=== PATIENT | male | born 1960 | race Caucasian/White ===

== ENCOUNTER 2016-08-27 06:29 | Day surgery (SDC) | payer BC ==
[~2016-08-27 06:29] MED LIST: Dextrose 5%-0.45% NaCl 1,000 ML IV SCH; Midazolam 1 MG/ML 2 ML SDV ONE; Sodium Chloride 0.9% 10 ML Syringe FLUSH PRN; fentaNYL 100 MCG/2 ML SDV ONE
[2016-08-27] MEDS ORDERED: fentaNYL 100 MCG/2 ML SDV IV ONE ×5 (07:57→14:40)
[2016-08-27] MEDS ORDERED: Midazolam 1 MG/ML 2 ML SDV IV ONE ×7 (07:58→14:40)
--- NOTE | 2016-08-27 09:17 | OR ---
DATE: 08/27/2016 PROCEDURE: Total colonoscopy. INSTRUMENT USED: CF-H180AL Olympus video colonoscope. PREMEDICATIONS: Fentanyl 150 mcg intravenous, Versed 4 mg intravenous. Nasal O2 cannula. The procedure was done under pulse oximetry, BP recording, and parachute line tier. INDICATION: Screening colonoscopic examination is done for detection of any polypoid lesions and removal, endoscopic hemostasis therapy if needed. DESCRIPTION OF PROCEDURE: Initial rectal exam was unremarkable. Rigid anoscopy was normal. The colonoscope was passed with ease up to the ileocecal area, photographs were taken of the normal-appearing cecum, identified by double- bulged ileocecal folds. No bleeding was noted from any of the visualized areas at the commencement of the examination. No stricture. No vascular ectasia. No large isolated ulcerations seen. No evidence of diffuse inflammatory bowel disease in the form of friability, contact bleeding, or ulcerations. No polyp or tumor mass identified. Probing the proximal sides of folds and flexures, using adequate distention and clearing up the stool material, withdrawal of the scope was made, cecum to rectum time over 6 minutes. No bleeding was noted from any of the visualized areas at the completion of examination. IMPRESSION: Normal study. The patient tolerated the procedure well. [facility] /[id number]
[2016-08-27 11:07] VITALS: BP 158/91
== END 2016-08-27 09:38 | disposition home or self-care (01) ==
LOC: DL.ENDO 06:29
PROVIDERS: ATTEND Internal Medicine Gastroenterology
DX: Z12.11 Encounter for screening for malignant neoplasm of colon (principal); I10 Essential (primary) hypertension; E66.9 Obesity, unspecified; Z72.0 Tobacco use
CPT/HCPCS: 45378; J2250; J3010; J7042

== ENCOUNTER 2019-03-06 13:08 | Emergency (ER) | payer BC, SELFPAY ==
[2019-03-06 13:20] VITALS: BP 148/77; PULSE 87
[2019-03-06] MEDS ORDERED: Sodium Chloride 0.9% 10 ML Syringe FLUSH PRN (13:23)
--- NOTE | 2019-03-06 13:27 | EDM.PDOC ---
ED HPI GENERAL MEDICAL PROBLEM - General Chief Complaint: Chest Pain Stated Complaint: CHEST FEELS HEAVY/LIGHTHEADED Time Seen by Provider: 03/06/19 13:26 Source of Information: Reports: Patient, RN, RN Notes Reviewed History Limitations: Reports: No Limitations - History of Present Illness INITIAL COMMENTS - FREE TEXT/NARRATIVE: Pt presents to ER with c/o lightheadedness that began at 1130HRS today. Pt states he hasn't felt well in general for about 3 or 4 days with "flu-like" symptoms. Pt admits to a heaviness in his chest for the past 3 days. Denies cough, shortness of breath, edema, or palpitations. Denies any Hx of CAD/UT. Onset: Gradual Duration: Constant, Resolved Prior to Arrival Location: Reports: Chest, Generalized Quality: Reports: Ache Severity: Moderate Improves with: Reports: None Worsens with: Reports: None Associated Symptoms: Reports: No Other Symptoms - Related Data Allergies Allergy/AdvReac Type Severity Reaction Status Date / Time bee sting Allergy ANAPHYLAXIS Uncoded 03/06/19 13:13 Home Meds: Home Meds Chlorthalidone 1 tab PO DAILY 08/26/16 [History] Levothyroxine Sodium 1 tab PO DAILY 08/26/16 [History] amLODIPine Besylate [Amlodipine Besylate] 1 tab PO DAILY 08/26/16 [History] cloNIDine HCL [Clonidine HCl] 1 tab PO DAILY 08/26/16 [History] Potassium Chloride [Klor-Con 10] 10 meq PO DAILY 03/06/19 [History] Past Medical History HEENT History: Reports: Impaired Vision, Other (See Below) Other HEENT History: WEARS CORRECTIVE LENS Cardiovascular History: Reports: Hypertension Respiratory History: Reports: None Gastrointestinal History: Reports: None Genitourinary History: Reports: Other (See Below) Other Genitourinary History: MICROSCOPIC HEMATURIA Musculoskeletal History: Reports: None Neurological History: Reports: None Psychiatric History: Reports: None Endocrine/Metabolic History: Reports: Hypothyroidism, Obesity/BMI 30+ Hematologic History: Reports: None Immunologic History: Reports: None Oncologic (Cancer) History: Reports: None Dermatologic History: Reports: Other (See Below) Other Dermatologic History: sun allergy...breaks out in the sun. on arms - Infectious Disease History Infectious Disease History: Reports: Chicken Pox, Measles, Mumps - Past Surgical History Male Surgical History: Reports: Other (See Below) Social & Family History - Family History Family Medical History: Noncontributory - Tobacco Use Smoking Status *Q: Heavy Tobacco Smoker Years of Tobacco use: 39 Packs/Tins Daily: 1 - Caffeine Use Caffeine Use: Reports: Coffee - Alcohol Use Days Per Week of Alcohol Use: 2 Number of Drinks Per Day: 5 Total Drinks Per Week: 10 - Recreational Drug Use Recreational Drug Use: No - Living Situation & Occupation Occupation: Employed ED ROS GENERAL - Review of Systems Review Of Systems: Comprehensive ROS is negative, except as noted in HPI. ED EXAM, GENERAL - Physical Exam Exam: See Below Exam Limited By: No Limitations General Appearance: Alert, WD/WN, No Apparent Distress Eye Exam: Bilateral Eye: Normal Inspection Nose: Normal Inspection, Normal Mucosa, No Blood Throat/Mouth: Normal Inspection, Normal Lips, Normal Teeth, Normal Gums, Normal Oropharynx, Normal Voice, No Airway Compromise Head: Atraumatic, Normocephalic Neck: Normal Inspection, Supple, Non-Tender, Full Range of Motion Respiratory/Chest: No Respiratory Distress, Lungs Clear, Normal Breath Sounds, No Accessory Muscle Use, Chest Non-Tender Cardiovascular: Normal Peripheral Pulses, Regular Rate, Rhythm, No Edema, No Gallop, No JVD, No Murmur, No Rub GI/Abdominal: Normal Bowel Sounds, Soft, Non-Tender, No Organomegaly, No Distention, No Abnormal Bruit, No Mass Back Exam: Normal Inspection Extremities: Normal Inspection Neurological: Alert, Oriented, Normal Cognition, No Motor/Sensory Deficits Psychiatric: Normal Mood Skin Exam: Warm, Dry, Intact, Normal Color, No Rash EKG INTERPRETATION EKG Date: 03/06/19 Time: 13:17 Rhythm: Other (SR) Rate (Beats/Min): 89 [place]: Normal P-Wave: Present QRS: Wide (borderline IVCD) ST-T: Normal QT: Normal Comparison: NA - No Prior EKG Course - Vital Signs Last Recorded V/S: Last Vital Signs Temp 99.2 F 03/06/19 13:17 Pulse 87 03/06/19 13:17 Resp 18 03/06/19 13:17 BP 148/77 H 03/06/19 13:17 Pulse Ox 98 03/06/19 13:17 - Orders/Labs/Meds Orders: Active Orders 24 hr Category Date Time Status EKG 12 Lead [EKG Documentation Completion] [] STAT Care 03/06/19 13:23 Active Peripheral IV Care [RC] . DIRECTED Care 03/06/19 13:24 Active CULTURE STREP A CONFIRMATION [] Stat Lab 03/06/19 13:25 Results STREP SCRN A RAPID W CULT CONF [] Stat Lab 03/06/19 13:25 Results Sodium Chloride 0.9% [Saline Flush] Med 03/06/19 13:23 Active 10 ml FLUSH ASDIRECTED PRN Peripheral IV Insertion Adult [OM.PC] Stat Oth 03/06/19 13:23 Ordered Medication Orders Sodium Chloride (Saline Flush) 10 ml FLUSH ASDIRECTED PRN PRN Reason: Keep Vein Open Last Admin: 03/06/19 13:37 Dose: 10 ml Labs: Laboratory Tests 03/06/19 03/06/19 Range/Units 13:18 13:18 WBC 9.3 (5.0-10.0) 10^3/uL RBC 5.69 (4.6-6.2) 10^6/uL Hgb 17.8 (14.0-18.0) g/dL Hct 49.6 (40.0-54.0) % MCV 87.2 (80-100) fL MCH 31.3 (27.0-34.0) pg MCHC 35.9 H (33.0-35.0) g/dL Plt Count 260 (150-450) 10^3/uL Neut % (Auto) 54.5 (42.2-75.2) % Lymph % (Auto) 31.8 (20.5-50.1) % [place] % (Auto) 9.4 H (2-8) % Eos % (Auto) 3.8 H (1.0-3.0) % Baso % (Auto) 0.5 (0.0-1.0) % Sodium 135 (135-145) mmol/L Potassium 3.8 (3.6-5.0) mmol/L Chloride 98 L (101-111) mmol/L Carbon Dioxide 26.0 (21.0-31.0) mmol/L Anion Gap 14.8 BUN 18 (7-18) mg/dL Creatinine 0.8 (0.6-1.3) mg/dL Est Cr Clr Drug Dosing 101.88 mL/min Estimated GFR (MDRD) > 60 BUN/Creatinine Ratio 22.50 Glucose 120 H (74-105) mg/dL Calcium 9.6 (8.4-10.2) mg/dl Total Bilirubin 1.2 H (0.2-1.0) mg/dL AST 36 (10-42) IU/L ALT 33 (10-60) IU/L Alkaline Phosphatase 70 (42-121) IU/L Troponin I < 0.02 (0.00-0.02) ng/ml Total Protein 8.1 (6.7-8.2) g/dl Albumin 4.7 (3.2-5.5) g/dl Globulin 3.4 Albumin/Globulin Ratio 1.38 Lipase 41 (22-51) U/L Meds: Medications Generic Name Dose Route Start Last Admin Trade Name Freq PRN Reason Stop Dose Admin Sodium Chloride 10 ml 03/06/19 13:23 03/06/19 13:37 Saline Flush FLUSH 10 ml ASDIRECTED PRN Administration Keep Vein Open - Radiology Interpretation Free Text/Narrative:: Chest X-ray: no acute process, see Rad. report. Departure - Departure Time of Disposition: 14:59 Disposition: Home, Self-Care 01 Condition: Good Clinical Impression: Atypical chest pain, Acute viral syndrome Instructions: Nonspecific Chest Pain, Viral Illness, Adult Forms: ED Department Discharge Additional Instructions: Rest, drink plenty of water. Follow up in clinic with your primary doctor this week to consider a cardiac stress test. Return to the ER if you develop chest pain. Sepsis Event Note - Evaluation Sepsis Screening Result: No Definite Risk - Focused Exam Vital Signs: Vital Signs Temp Pulse Resp BP Pulse Ox 03/06/19 13:17 99.2 F 87 18 148/77 H 98 Date Exam was Performed: 03/06/19 Time Exam was Performed: 15:20 - My Orders Last 24 Hours: My Active Orders 03/06/19 13:23 EKG 12 Lead [EKG Documentation Completion] [RC] STAT Sodium Chloride 0.9% [Saline Flush] 10 ml FLUSH ASDIRECTED PRN Peripheral IV Insertion Adult [OM.PC] Stat 03/06/19 13:24 Peripheral IV Care [RC] . DIRECTED 03/06/19 13:25 CULTURE STREP A CONFIRMATION [] Stat STREP SCRN A RAPID W CULT CONF [RM] Stat - Assessment/Plan Last 24 Hours: My Active Orders 03/06/19 13:23 EKG 12 Lead [EKG Documentation Completion] [RC] STAT Sodium Chloride 0.9% [Saline Flush] 10 ml FLUSH ASDIRECTED PRN Peripheral IV Insertion Adult [OM.PC] Stat 03/06/19 13:24 Peripheral IV Care [RC] . DIRECTED 03/06/19 13:25 CULTURE STREP A CONFIRMATION [RM] Stat STREP SCRN A RAPID W CULT CONF [RM] Stat
[2019-03-06 13:45] LABS: ANION GAP 14.8; CHLORIDE,CL 98 mmol/L (101-111); SODIUM,NA 135 mmol/L (135-145)
--- NOTE | 2019-03-06 14:04 | CR ---
EXAMINATION: Chest 1V Frontal SEX: Male AGE: 58 years CLINICAL HISTORY: 58-year-old male complaining of CHEST PAIN. INTERPRETATION: External outpatient dietitian leads. 1. Normal cardiac silhouette. 2. No pulmonary vascular congestion, cephalization of vascular flow, alveolar edema or dependent pleural effusion. 3. No lung mass, hilar lymphadenopathy or focal lobar pneumonia. 4. No pneumothorax or pneumomediastinum. CONCLUSION: No sign of heart failure, lobar pneumonia or other abnormality.
== END 2019-03-06 15:10 | disposition home or self-care (01) ==
LOC: DL.ED 13:08
DX: R07.89 Other chest pain (principal); B34.9 Viral infection, unspecified; I10 Essential (primary) hypertension; E03.9 Hypothyroidism, unspecified; E66.9 Obesity, unspecified; F17.210 Nicotine dependence, cigarettes, uncomplicated; Z68.30 Body mass index [BMI] 30.0-30.9, adult; Z79.899 Other long term (current) drug therapy; Z91.09 Other allergy status, other than to drugs and biological substances
CPT/HCPCS: 36415; 71045; 80053; 83690; 84484; 85025; 87081; 87430; 87804; 93005; 99285-25

== ENCOUNTER 2024-05-26 20:46 | Emergency (ER) | payer SELFPAY ==
[2024-05-26] MEDS ORDERED: Sodium Chloride 0.9% 10 ML Syringe FLUSH PRN (21:23)
[2024-05-26] MEDS: Aspirin 81 MG Tab.Chew PO ONE (21:31)
[2024-05-26 21:34] LABS: BASOPHILS PERCENT AUTO 0.4 % (0.0-1.0); EOSINOPHILS PERCENT AUTO 4.6 % (1.0-3.0); HEMATOCRIT 50.8 % (40.0-54.0); HEMOGLOBIN 17.3 g/dL (14.0-18.0); LYMPHOCYTES PERCENT AUTO 31.6 % (20.5-50.1); MEAN CORPUSCULAR HEMOGLOBIN 30.5 pg (27.0-34.0); MEAN CORPUSCULAR HGB CONC 34.1 g/dL (33.0-35.0); MEAN CORPUSCULAR VOLUME 89.6 fL (80-100); MONOCYTES PERCENT AUTO 11.1 % (2-8); NEUTROPHILS PERCENT AUTO 52.3 % (42.2-75.2); PLATELET COUNT,PLT 267 10^3/uL (150-450); RED BLOOD CELL COUNT 5.67 10^6/uL (4.6-6.2); WHITE BLOOD CELL COUNT,WBC 13.5 10^3/uL (5.0-10.0)
[2024-05-26 21:41] LABS: APPEARANCE,URINE CLEAR (CLEAR); BILIRUBIN,URINE NEGATIVE (NEGATIVE); COLOR,URINE YELLOW (YELLOW); GLUCOSE,URINE NEGATIVE (NEGATIVE); KETONES,URINE NEGATIVE (NEGATIVE); LEUKOCYTE ESTERASE,URINE NEGATIVE (NEGATIVE); NITRITE,URINE NEGATIVE (NEGATIVE); OCCULT BLOOD,URINE TRACE-LYSED (NEGATIVE); PH,URINE 5.5 (5.0-9.0); PROTEIN,URINE NEGATIVE (NEGATIVE); UROBILINOGEN,URINE 0.2 mg/dL (0.2-1.0)
[2024-05-26 21:46] LABS: INR 0.9 (0.9-1.2); PROTHROMBIN TIME 9.9 SEC (9.0-12.0); PTT,PARTIAL THROMBOPLSTIN TIME 28.3 SEC (22.0-34.0)
[2024-05-26 21:53] LABS: BACTERIA,URINE RARE /HPF (0-FEW/HPF); EPITHELIAL CELLS,URINE NOT SEEN /HPF (NOT SEEN); MUCUS,URINE FEW /LPF (NOT SEEN); RBC,URINE 0-5 /HPF (0-5); WBC,URINE NOT SEEN /HPF (0-5/HPF)
[2024-05-26 21:56] LABS: ALBUMIN 4.4 g/dL (3.4-5.0); ANION GAP 14.5 mEq/L (7-13); BILIRUBIN TOTAL 0.4 mg/dL (0.2-1.0); CALCIUM 9.6 mg/dL (8.5-10.1); CREATININE 0.86 mg/dL (0.70-1.30); EST CRCL DRUG DOSING (CG) 87.92 mL/min; POTASSIUM,K 3.5 mmol/L (3.5-5.1); PROTEIN TOTAL,TP 8.7 g/dL (6.4-8.2)
[2024-05-26 21:57] LABS: MAGNESIUM 2.2 mg/dL (1.8-2.4)
[2024-05-26 21:58] LABS: TSH ULTRASENSITIVE 16.95 uIU/mL (0.36-3.74)
[2024-05-26] MEDS ORDERED: Heparin Sodium 5,000 Units/ML Vial IVPUSH ONE (22:30)
[2024-05-26] MEDS: Heparin Sodium/0.45% NaCl 25,000 UNITS/500 ML BAG IV SCH (23:04)
[2024-05-26] MEDS: Heparin Sodium 5,000 Units/ML Vial IVPUSH ONE (23:07)
[2024-05-26 23:28] VITALS: BP 143/73; PULSE 70
[2024-05-26] MEDS: Nitroglycerin 2% Oint 1 GM UD Packet TOP ONE (23:40)
== END 2024-05-27 00:37 ==
LOC: DL.ED 20:46
DX: I21.4 Non-ST elevation (NSTEMI) myocardial infarction (principal); I10 Essential (primary) hypertension; I44.7 Left bundle-branch block, unspecified; E66.9 Obesity, unspecified; Z68.44 Body mass index [BMI] 60.0-69.9, adult; E03.9 Hypothyroidism, unspecified; F17.210 Nicotine dependence, cigarettes, uncomplicated; Z91.030 Bee allergy status; Z79.890 Hormone replacement therapy; Z79.899 Other long term (current) drug therapy
CPT/HCPCS: 36415; 71045; 80053; 80061; 80307; 81001; 83735; 84443; 84484; 85025; 85610; 85730; 93005; 93010; 96365; 99285; A9270; J1644

== ENCOUNTER 2024-05-27 02:00 | Emergency (ER) | payer SELFPAY ==
[~2024-05-27 02:00] MED LIST changes: -Dextrose 5%-0.45% NaCl 1,000 ML IV SCH; +Heparin Sodium/0.45% NaCl 25,000 UNITS/500 ML BAG IV SCH; -Midazolam 1 MG/ML 2 ML SDV ONE; -Sodium Chloride 0.9% 10 ML Syringe FLUSH PRN; -fentaNYL 100 MCG/2 ML SDV ONE
[2024-05-27] MEDS: Heparin Sodium/0.45% NaCl 25,000 UNITS/500 ML BAG IV SCH (02:00)
[2024-05-27] MEDS ORDERED: Sodium Chloride 0.9% 10 ML Syringe FLUSH PRN (03:03)
[2024-05-27 06:07] LABS: PTT,PARTIAL THROMBOPLSTIN TIME 31.3 SEC (22.0-34.0)
[2024-05-27] MEDS ORDERED: Heparin Sodium 5,000 Units/ML Vial ONE (06:42)
[2024-05-27] MEDS: Heparin Sodium 5,000 Units/ML Vial IVPUSH ONE (06:54)
[2024-05-27 09:03] VITALS: BP 138/93; PULSE 91
[2024-05-27] MEDS: amLODIPine 5 MG Tab PO SCH (09:05)
== END 2024-05-27 09:08 | disposition other institution (70) ==
LOC: DL.ED 02:00
DX: I21.4 Non-ST elevation (NSTEMI) myocardial infarction (principal); I24.9 Acute ischemic heart disease, unspecified; I10 Essential (primary) hypertension; E03.9 Hypothyroidism, unspecified; E66.9 Obesity, unspecified; F17.210 Nicotine dependence, cigarettes, uncomplicated; Z68.32 Body mass index [BMI] 32.0-32.9, adult; Z91.030 Bee allergy status; Z79.890 Hormone replacement therapy; Z79.899 Other long term (current) drug therapy
CPT/HCPCS: 36415; 84484; 85610; 85730; 93005; 93010; 96365; 96366; 99285; 99291; J1644

== ENCOUNTER 2024-06-17 21:38 | Emergency (ER) | payer SELFPAY ==
[2024-06-17] MEDS ORDERED: Sodium Chloride 0.9% 10 ML Syringe FLUSH PRN (21:41)
[2024-06-17] MEDS: Aspirin 81 MG Tab.Chew PO ONE (21:48)
[2024-06-17 21:53] LABS: BASOPHILS PERCENT AUTO 0.3 % (0.0-1.0); EOSINOPHILS PERCENT AUTO 4.4 % (1.0-3.0); HEMOGLOBIN 16.8 g/dL (14.0-18.0); LYMPHOCYTES PERCENT AUTO 31.7 % (20.5-50.1); MEAN CORPUSCULAR HEMOGLOBIN 31.2 pg (27.0-34.0); MEAN CORPUSCULAR VOLUME 89.2 fL (80-100); NEUTROPHILS PERCENT AUTO 54.6 % (42.2-75.2); PLATELET COUNT,PLT 255 10^3/uL (150-450); RED BLOOD CELL COUNT 5.38 10^6/uL (4.6-6.2)
[2024-06-17] MEDS: Heparin Sodium 5,000 Units/ML Vial IVPUSH ONE (21:54)
[2024-06-17] MEDS: Nitroglycerin 0.4 MG Tab.SL SL ONE (21:55)
[2024-06-17] MEDS: Heparin Sodium/0.45% NaCl 25,000 UNITS/500 ML BAG IV SCH (22:04)
[2024-06-17] MEDS: Sodium Chloride 0.9% 1,000 ML IV ONE (22:14)
[2024-06-17 22:17] LABS: ALBUMIN 3.8 g/dL (3.4-5.0); ANION GAP 12.7 mEq/L (7-13); BILIRUBIN TOTAL 0.4 mg/dL (0.2-1.0); BUN/CREATININE RATIO 20.2 (No establ ref range); CALCIUM 9.4 mg/dL (8.5-10.1); CREATININE 0.84 mg/dL (0.70-1.30); EST CRCL DRUG DOSING (CG) 90.01 mL/min; POTASSIUM,K 3.7 mmol/L (3.5-5.1); PROTEIN TOTAL,TP 7.6 g/dL (6.4-8.2)
[2024-06-17 22:37] LABS: PROTHROMBIN TIME 10.1 SEC (9.0-12.0); PTT,PARTIAL THROMBOPLSTIN TIME 27.3 SEC (22.0-34.0)
[2024-06-17 23:39] VITALS: BP 121/68; PULSE 79
[2024-06-17] MEDS: Metoprolol Tartrate 5 MG/5 ML SDV IVPUSH ONE (23:48)
== END 2024-06-18 00:03 ==
LOC: DL.ED 21:38
DX: I24.9 Acute ischemic heart disease, unspecified (principal); I10 Essential (primary) hypertension; E03.9 Hypothyroidism, unspecified; E66.9 Obesity, unspecified; Z68.32 Body mass index [BMI] 32.0-32.9, adult; Z79.890 Hormone replacement therapy; Z91.030 Bee allergy status
CPT/HCPCS: 36415; 71045; 80053; 83735; 84484; 85025; 85379; 85610; 85730; 93005; 93010; 96365; 96366; 96376; 99285; A9270; J1644; J7030